=== PATIENT | female | born 1935 | race Caucasian/White ===

== ENCOUNTER 2017-01-24 14:15 | Observation (INO) | payer MEDICARE ==
[~2017-01-24] VITALS: Ht 162.6 cm; Wt 94.3 kg
[~2017-01-24 14:15] MED LIST: ADVAIR DISK1; ALBUTEROL S2.5 MG/.5; ANUCORT-HC25 MG RE; BACTRIM DS1 TAB PO; CIPROFLOXACN500 MG PO; COLACE100 MG PO; DOCUSATE CAL240 MG PO; DULCOLAX10 MG RE; FLONASE0.05 %; LIDOCAINE VISC20 ML EX; NEXIUM40 M1 PO; PYRIDIUM200 MG PO; QVAR40 MCG IN; SENNA1 TAB PO; SILVADENE1 % TOP; SIMVASTATIN10 MG PO; XALATAN0.005 % OP
--- NOTE | 2017-01-24 14:24 | NUR ---
PT TO ROOM FOR TREATMENT IN STABLE CONDIION
[2017-01-24] MEDS ORDERED: SERTRALINE HCL25 MG PO (14:25)
--- NOTE | 2017-01-24 14:32 | NUR ---
INTRODUCED SELF TO PT AND . PT REPORTS HEMORRHOIDS AND CONSTIPATION X 10 DAYS. PT HAS USED HP CREAM, FLEET ENEMAS, AND STOOL SOFTENERS WILL NO RELIEF. ABD SOFT, NON-TENDER UPON PALPATION, BS HYPO ACTIVE. PT DENIES AND ABD PAIN BUT REPORTS 5/10 RECTAL PAIN. INFORMED OF PROBABLE PLAN OF CARE, CALL BARCLAY WITHIN REACH.
--- NOTE | 2017-01-24 15:22 | NUR ---
PT AMBULATED TO BR WITH A STEADY GAIT. UNABLE TO HAVE A BM. INFORMED OF PENDING XRAY RESULTS WILL CONTINUE TO MONITOR.
--- NOTE | 2017-01-24 16:20 | NUR ---
MD AT BEDSIDE FOR RECTAL EXAM, NO EXTERNAL HEMORRHOIDS NOTED. PT TOLERATED WELL. MD DISCUSSED PLAN FOR ADMISSION WITH PT.
[2017-01-24 16:46] LABS: HEMATOCRIT 41.4 % (37.0-47.0); HEMOGLOBIN 13.5 g/dl (12.0-16.0); IMMATURE GRANULOCYTES 0.4 % (0.0-1.0); MEAN CELL VOLUME 84.8 fL CALC (80.0-100.0); MEAN CORPUSCULAR HGB 27.7 pG CALC (26.0-32.0); MEAN CORPUSCULAR HGB CONC 32.6 g/L CALC (32.0-36.0); NEUT# 6.33 thou/uL (2.00-7.15); RED BLOOD COUNT 4.88 mill/uL (4.20-5.60); RED CELL DISTRI WIDTH 13.9 % (11.5-15.5)
[2017-01-24 16:57] LABS: URINE BILIRUBIN - DIPSTICK NEGATIVE (NEGATIVE); URINE BLOOD DIPSTICK NEGATIVE (NEGATIVE); URINE CLARITY CLEAR; URINE COLOR YELLOW; URINE GLUCOSE - DIPSTICK NEGATIVE (NEGATIVE); URINE KETONE NEGATIVE (NEGATIVE); URINE LEUK ESTERASE NEGATIVE (NEGATIVE); URINE NITRITE - DIPSTICK NEGATIVE (Negative); URINE PROTEIN - DIPSTICK NEGATIVE (NEG-TRACE); URINE SPECIFIC GRAVITY 1.015; URINE UROBILINOGEN - DIPSTICK 0.2 E.U./dL (0.2)
[2017-01-24 16:57] LABS: ALBUMIN 4.3 g/dL (3.2-5.0); ALKALINE PHOSPHATASE 105 u/l (38-126); ANION GAP 16 (6-22 (CALC)); BILIRUBIN, TOTAL 1.1 mg/dL (0.0-1.4); BUN 13 mg/dL (8-23); BUN/CREATININE RATIO 25 (12-20 (CALC)); CALCIUM 9.1 mg/dL (8.4-10.2); CARBON DIOXIDE 21 mmol/l (22-30); CHLORIDE 109 mmol/l (95-108); CREATININE 0.5 mg/dL (0.5-1.0); GFR > 60 ML/MIN (>=60 (CALC)); GFR FOR AFR.AMER. > 60 ML/MIN (>=60 (CALC)); GLUCOSE 86 mg/dL (82-115); SGOT/AST 40 u/l (9-36); SGPT/ALT 16 u/l (11-66); SODIUM 141 mmol/l (137-146); TOTAL PROTEIN 7.4 g/dL (6.3-8.2)
[2017-01-24 16:59] LABS: POTASSIUM 5.4 mmol/l (3.5-5.1)
--- NOTE | 2017-01-24 17:20 | NUR ---
NOTIFIED OF ELEVATED POTASSIUM.
--- NOTE | 2017-01-24 17:23 | NUR ---
REPORT GIVEN TO BRY LOWRY.
--- NOTE | 2017-01-24 17:40 | NUR ---
PT ARRIVED TO FLOOR VIA WHEELCHAIR ACCOMPANIED BY BRY ESTRADA. PT AMBUALTES INDEPENDENTLY. DENIES PAIN. REPORTS PRESSURE IN ABDOMIN. NO NAUSEA OR VOMITING. PT ORIENTED TO ROOM AND EQUIPMENT. PLAN OF CARE DISCUSSED. REPORTING OF CONCERNS ENCOURAGED. CALL LIGHT REVIEWED AND IN REACH. PT STATES UNDERSTANDING.
[2017-01-24 17:45] VITALS: BP 162/82
--- NOTE | 2017-01-24 17:45 | NUR ---
Admission Note Report Given to: ALEN Transported by: X Wheelchair Stretcher Transported with: X Nurse Transporter X [employer] Specialist PT IN STABLE CONDITION WITH NO COMPLAINTS OF PAIN AT THIS TIME, BEONGINGS GIVEN TO PT'S , IV SITE HEALTHY.
--- NOTE | 2017-01-24 18:36 | NUR ---
SSE STARTED. 1/4 OF BAG ADMINISTERED, PT REQUESTS TO STOP. PT TO BSC. LARGE FORMED BROWN BOWEL MOVEMENT. PROCEEDED WITH SSE. PT ON BSC AT THIS TIME. WILL CONTINUE TO MONITOR.
--- NOTE | 2017-01-24 19:24 | NUR ---
BEDSIDE REPORT RECEIVED FROM BRY LOWRY. PT AMBULATING IN ROOM AT THIS TIME. CURRENTLY RECEIVING SOAP LEODAN ENEMA AND TOLERATING WELL. C/O DISCOMFORT TO INTERNAL HEMMORHOIDS. NO RESPIRATORY DISTRESS NOTED. PLAN OF CARE DISCUSSED. ENCOURAGED TO VERBALIZE CONCERNS. PT STATES UNDERSTANDING. AT BEDSIDE. SAFETY MEASURES IN PLACE. CALL LIGHT SYSTEM REVIEWED AND IN REACH.
--- NOTE | 2017-01-25 | NUR ---
PT ASLEEP AT THIS TIME. UP AD VIANEY TO VOID. NO DISTRESS NOTED AND RESPIRATIONS ARE EVEN AND UNLABORED. IV SITE APPEARS HEALTHY. SAFETY MEASURES IN PLACE. CALL LIGHT WTIHIN REACH.
--- NOTE | 2017-01-25 04:02 | NUR ---
PT ASLEEP AT THIS TIME WITH NO SIGNS OF DISTRESS. RESPIRATIONS EVEN AND UNLABORED. UP TO VOID ONCE WITH ASSIST DUE TO C/O LIGHT HEADEDNESS. SAFETY MEASURES IN PLACE. CALL LIGHT WITHIN REACH.
[2017-01-25 04:56] VITALS: BP 136/75
--- NOTE | 2017-01-25 07:25 | NUR ---
BEDSIDE REPORT RECEIVED FROM JOSE ALARCON. PT SITTING UPRIGHT IN BED. DENIES PAIN. REPORTING OF CONCERNS ENCOURAGED. PLAN OF CARE DISCUSSED. HYDRATION AND WATER INTAKE DISCUSSED. CALL LIGHT REVIEWED AND IN REACH. PT STATES UNDERSTANDING.
[2017-01-25 08:19] VITALS: BP 144/61
--- NOTE | 2017-01-25 11:11 | NUR ---
SUPPOSITORY ADMINISTERED PER DR. SAMSON. PT REPORTS BM. LARGE FORMED BM OBSERVED.
[2017-01-25 11:22] VITALS: BP 151/84
[2017-01-25] MEDS ORDERED: GLYCOLAX3350 N1 PO (11:48)
[2017-01-25] MEDS ORDERED: BISACODYL10 M2 PR (11:48)
--- NOTE | 2017-01-25 12:53 | NUR ---
Discharge instructions given. Patient verbalizes understanding of same. Discharged in stable condition via Ambulatory to Home with spouse. All belongings sent with pt.
== END 2017-01-25 12:55 | disposition home or self-care (01) ==
LOC: ENPENDDIS → ED 14:15 → ED-I 16:18 → ED 16:57 → MS2 16:58
PROVIDERS: Emergency Medicine; ADMIT Internal Medicine; ATTEND Internal Medicine
DX: K56.41 Fecal impaction (principal); K59.09 Other constipation; E87.5 Hyperkalemia; J45.909 Unspecified asthma, uncomplicated; N18.9 Chronic kidney disease, unspecified; F32.9 Major depressive disorder, single episode, unspecified; K64.9 Unspecified hemorrhoids; R10.33 Periumbilical pain; Z87.891 Personal history of nicotine dependence